=== PATIENT | male | born 2000 | race Hispanic/Latino ===

== ENCOUNTER 2021-01-15 12:33 | Emergency (ER) | payer OTHER ==
[2021-01-15] MEDS ORDERED: MOTRIN800 MG PO (14:17)
[2021-01-15] MEDS ORDERED: FLEXERIL5 M1 PO (14:17)
[2021-01-15 14:31] VITALS: BP 157/73
== END 2021-01-15 14:26 | disposition home or self-care (01) | DRG 914 ==
LOC: ED 12:33
DX: S09.90XA Unspecified injury of head, initial encounter (principal); S16.1XXA Strain of muscle, fascia and tendon at neck level, initial encounter; S60.511A Abrasion of right hand, initial encounter; V49.50XA Passenger injured in collision with unspecified motor vehicles in traffic accident, initial encounter